=== PATIENT | male | born 2000 | race Hispanic/Latino ===

== ENCOUNTER 2024-06-04 10:07 | Emergency (ER) | payer OTHER ==
[~2024-06-04] VITALS: Ht 193 cm; Wt 110.0 kg
[2024-06-04] MEDS: KETOROLAC 60MG 2ML VIAL IM ONE (13:30)
[2024-06-04 13:40] VITALS: BP 133/82; TEMP 96.9; O2SAT 99
== END 2024-06-04 13:41 | disposition home or self-care (01) ==
LOC: M ED 10:07
DX: M25.522 Pain in left elbow (principal)
CPT/HCPCS: 73030; 73060; 73080; 96372; 99283; J1885

== ENCOUNTER 2024-10-28 06:59 | Emergency (ER) | payer OTHER ==
[~2024-10-28] VITALS: Ht 193 cm; Wt 102.0 kg
[2024-10-28] MEDS ORDERED: HOME MED LIST COMPLETE! XX SCH (12:20)
[2024-10-28] MEDS: ACETAMINOPHEN *IV* 1,000 MG in IV 1 EA IV ONE (12:23)
[2024-10-28 12:33] LABS: BASO # 0.1 10^3/uL (0.0-0.2); BASO % 0.6 % (0.0-1.0); EOS # 0.0 10^3/uL (0.0-0.5); EOS % 0.3 % (0.0-3.0); LYMPH # 1.7 10^3/uL (1.5-5.0); LYMPH % 19.5 % (24.0-44.0); MONO # 0.8 10^3/uL (0.0-0.8); MONO % 9.5 % (2.0-8.0); NEUTROPHILS # 6.0 10^3/uL (1.5-8.5); NEUTROPHILS % 69.8 % (36.0-66.0); PLATELET COUNT, AUTOMATED 286 10^3/uL (150-450)
[2024-10-28 12:37] LABS: ERYTHROCYTE SEDIMENTATION RATE 7 mm/hr (0-15)
[2024-10-28 12:55] LABS: C REACTIVE PROTEIN QUANTITATIV < 0.50 MG/DL (<1.0)
[2024-10-28 12:56] LABS: CALCIUM LEVEL 9.4 MG/DL (8.5-10.1); CARBON DIOXIDE LEVEL 24 MMOL/L (20-31); CHLORIDE LEVEL 106 MMOL/L (98-107); CREATININE FOR GFR 1.04 MG/DL (0.70-1.30); GLOMERULAR FILTRATION RATE > 90.0 (>60); POTASSIUM SERUM 4.5 MMOL/L (3.5-5.1); SODIUM LEVEL 144 MMOL/L (136-145)
[2024-10-28 13:23] VITALS: BP 125/87; TEMP 99.1; O2SAT 97
== END 2024-10-28 13:29 | disposition home or self-care (01) ==
LOC: M ED 06:59
DX: S52.135A Nondisplaced fracture of neck of left radius, initial encounter for closed fracture (principal); Y92.9 Unspecified place or not applicable; Y93.9 Activity, unspecified; Y99.9 Unspecified external cause status; Z91.018 Allergy to other foods
CPT/HCPCS: 29125; 73080; 80048; 84550; 85025; 85652; 86140; 96374; 99284; J0131

== ENCOUNTER → 2024-11-20 | Outpatient (CLI) | payer OTHER | LOC: M SOG 06:55 | PROVIDERS: ATTEND Orthopaedic Surgery | DX: M25.522 Pain in left elbow (principal) ==

== ENCOUNTER 2025-02-10 00:46 | Emergency (ER) | payer OTHER ==
[2025-02-10 01:58] LABS: PLATELET COUNT, AUTOMATED 322 10^3/uL (150-450)
[2025-02-10 02:25] LABS: ETHYL ALCOHOL (ETHANOL) 0.273 % (0.000-0.010)
[2025-02-10 02:27] LABS: ALT/SGPT 62 U/L (7.0-40); AST/SGOT 28 U/L (<34); CALCIUM LEVEL 9.3 MG/DL (8.5-10.1); CARBON DIOXIDE LEVEL 26 MMOL/L (20-31); CHLORIDE LEVEL 109 MMOL/L (98-107); CREATININE FOR GFR 0.95 MG/DL (0.70-1.30); GLOMERULAR FILTRATION RATE > 90.0 (>60); POTASSIUM SERUM 4.0 MMOL/L (3.5-5.1); SALICYLATE LEVEL < 3.0 MG/DL (<30); SODIUM LEVEL 146 MMOL/L (136-145)
[2025-02-10] MEDS ORDERED: HOME MED LIST COMPLETE! XX SCH (06:10)
[2025-02-10 08:01] VITALS: BP 109/53; TEMP 98.6; O2SAT 99
[2025-02-10 10:37] LABS: AMPHETAMINES LEVEL URINE NEGATIVE (NEGATIVE); BARBITURATES URINE NEGATIVE (NEGATIVE); BENZODIAZEPINES URINE NEGATIVE (NEGATIVE); CANNABINOIDS URINE NEGATIVE (NEGATIVE); PHENCYCLIDINE URINE NEGATIVE (NEGATIVE)
[2025-02-10 10:38] LABS: COCAINE METABOLITE URINE NEGATIVE (NEGATIVE); METHADONE URINE NEGATIVE (NEGATIVE); OPIATES URINE NEGATIVE (NEGATIVE)
== END 2025-02-10 10:55 | disposition home or self-care (01) ==
LOC: M ED 00:46
DX: F10.120 Alcohol abuse with intoxication, uncomplicated (principal); F39 Unspecified mood [affective] disorder; F17.210 Nicotine dependence, cigarettes, uncomplicated; Z91.030 Bee allergy status; Z91.018 Allergy to other foods